=== PATIENT | female | born 1990 | race Caucasian/White ===

== ENCOUNTER 2024-11-30 13:59 | Day surgery (SDC) | payer SELFPAY ==
[2024-11-30 10:06] VITALS: BP 134/76
[2024-11-30 11:40] VITALS: BMI 34.8
[2024-11-30] MEDS: MORPHINE SULFATE 4 MG IV (11:42)
[2024-11-30] MEDS: TORADOL 30 MG IV (12:39)
--- NOTE | 2024-11-30 12:45 | ED.GENMED ---
History of Present Illness
General
Chief Complaint: Musculo-Skeletal Complaint
Source: patient
Exam Limitations: none
Time Seen by Provider: 11/30/24 11:18
History of Present Illness
History of Present Illness:
34-year-old female who was at a power lifting competition. She states she was just about to start squatting and was waiting for her support when suddenly her right forearm gave out. She is not sure exactly what happened. Significant other states
that he has a video and the arm seem to get out. Upon review of the video it does appear that maybe the bar started to slide down the shoulder and the forearm broke. Patient did not fall. No other injuries.
Past History
Past History
ED Past Medical History: None
Phy Exam
Physical Exam
Physical Exam:
CONSTITUTIONAL Patient alert and oriented to person, place and time. Well-appearing. Vital signs reviewed.
HEAD atraumatic, normocephalic.
EYES eyelids normal to inspection, Extraocular muscles intact, Conjunctiva normal, Sclera normal.
NECK normal range of motion, Trachea midline, no jugular venous distention.
RESPIRATORY CHEST No respiratory distress noted, Chest expansion equal
BACK normal inspection, no obvious deformities
UPPER EXTREMITY obvious deformity to the right forearm. Normal distal cap refill. Normal distal sensation function. Neurovascularly intact. No open wounds
LOWER EXTREMITY range of motion normal, Motor strength normal, no cyanosis, no edema.
NEURO Speech normal, No focal motor deficits, Zaki coma scale 15, Memory normal, Cranial Nerves intact to screening exam.
SKIN skin warm, dry, and normal in color.
Course
Orders/Labs/Results
Orders:
Orders
11/30/24 11:34
Morphine Sulfate 4 mg IV NOW STA
CR Forearm - Right 2 View Urgent
Reason For Exam: injury while powerlifting, deformity
11/30/24 12:36
Ketorolac [Toradol] 30 mg IV NOW STA
11/30/24 12:42
Complete Blood Count/With Diff Urgent
Comprehensive Metabolic Panel Urgent
HCG, Serum Qualitative Screen Urgent
Test Result ONCE
Vital Signs
Initial and Last Documented VS:
Initial Vital Signs
Temp Pulse Resp BP Pulse Ox
97.8 F 94 16 134/76 95
11/30/24 10:06 11/30/24 10:06 11/30/24 10:06 11/30/24 10:06 11/30/24 10:06
Last Documented Vital Signs
Temp Pulse Resp BP Pulse Ox
97.8 F 94 16 134/76 99
11/30/24 10:06 11/30/24 10:06 11/30/24 10:06 11/30/24 10:06 11/30/24 12:00
MDM/Problems Addressed
MDM/Problems Addressed:
Displaced radius fracture. Displaced ulnar fracture
*Radiology
Radiology exam reviewed: preliminary read by ED provider (Displaced radius and ulnar fracture)
*Pulse Oximetry
Patient hypoxic: no
*Repairer Sash And Door Interpretation
Rate: normal
Interpretation: normal
Rhythm: sinus
*Critical Care Note
Total Time (30-74mins, 75-104mins- exclusive of procedures): Not Applicable
Data Reviewed
Source: patient and significant other
Patient Management
Discussion with other providers: Pack Master (Case discussed with orthopedics)
Escalation/DeEscalation of care consider admission/obs:
Case discussed with Dr. Christina. Displaced radius and ulnar fracture. Will be difficult emergency department reduction. Dr. Christina to take to the OR
ED Attending Note
-
Portions of this chart may have been created with voice recognition software.� Occasional wrong word or��sound alike� substitutions may have occurred due to the inherent limitations of voice recognition software.
Discharge Plan
Departure
Patient Disposition: Admit
Date of Disposition: 11/30/24
Time of Disposition: 12:45
Admit to: OR
Presentation/result/management discussed w/ accepting MD/DO: Carri
Discharge Problem:
Displaced fracture of radius, Displaced fracture of right ulna
Referrals:
UNKNOWN - PT DOES,NOT KNOW [Family Provider] -
Interventions
Interventions:
*Risk Screen - Suicide Last Done: 11/30/24 10:06
*General Assessment Last Done: 11/30/24 11:41
*Neglect/Abuse Screening Last Done: 11/30/24 10:06
*ED- Fall Risk Assessment Last Done: 11/30/24 11:41
*ED COVID-19 Vaccine History Last Done: 11/30/24 11:41
ED-Musculoskeletal Assessment Last Done: 11/30/24 11:41
Discharge Date and Time
Print Language: GREENLANDIC
[2024-11-30 12:49] LABS: % Basophils 0.4 % (0-2); % Eosinophils 0.1 % (0-6); % Immature Granulocytes 0.4 % (0-0.5); % Lymphocytes 8.6 % (20.5-51.1); % Monocytes 4.6 % (1.7-9.3); % Neutrophils 85.9 % (42.2-75.2); Absolute Lymphocytes 0.9 10^3/uL (1.2-3.4); Absolute Monocytes 0.5 10^3/uL (0.1-0.6); Absolute Neutrophils 8.9 10^3/uL (1.4-6.5); Hematocrit 39.8 % (37.0-47.0); Hemoglobin 14.2 g/dL (12.0-16.0); Mean Corp Hgb Conc. 35.7 g/dL (33.0-37.0); Mean Corpuscular Hgb 30.6 pg (27.0-31.0); Mean Corpuscular Volume 85.8 fL (81.0-99.0); Mean Platelet Volume 10.3 fL (7.4-10.4); Nucleated Red Blood Cells % 0 %; Platelet Count 309 10^3/uL (130-400); Red Blood Cell Count 4.64 10^6/uL (4.20-5.40); Red Cell Dist. Width 12.3 % (11.5-14.5); White Blood Cell Count 10.4 10^3/uL (4.8-10.8)
[2024-11-30 13:01] LABS: HCG, Serum Qualitative Screen Negative
[2024-11-30 13:04] LABS: ALT (SGPT) 25 U/L (0-35); AST (SGOT) 28 U/L (14-36); Albumin 4.4 g/dl (3.5-5.0); Alkaline Phosphatase 63 U/L (38-126); Blood Urea Nitrogen 24 mg/dl (7-17); Calcium 9.6 mg/dl (8.4-10.2); Carbon Dioxide 24 mmol/L (22-30); Chloride 106 mmol/L (98-107); Estimated Creatinine Clearance 65 ml/min; Glucose 97 mg/dl (70-99); Potassium 4.8 mmol/L (3.5-5.1); Sodium 139 mmol/L (135-145); Total Bilirubin 0.8 mg/dl (0.2-1.3); Total Protein 7.4 g/dl (6.3-8.2); eGFR 55.68
--- NOTE | 2024-11-30 15:38 | CON.ORTHO ---
Consultation
-
Date/Time Consultation Requested: 11/30/24 @1pm
Date/Time Consultation Performed: 11/30/24 @1:30pm
Requesting Provider: ER Provider
Performing Provider: Sonya Daniels PA-C/Jaziel Christina MD
Reason for Consultation: right radius and ulna fractures
Consultation - Orthopedics
History
HPI: 34yo female presented to [facility] for right forearm pain. She was evaluated in the OR preop area in tandem with Dr. Christina. Earlier today, she was power lifting and was just about to squat when she heard a pop and felt her right arm give
out. She is not exactly sure what happened. She denies any other injuries and she did not fall. She has immediate pain and she noticed an obvious deformity of her right forearm. An ambulance was called and recommended she go to the hospital. She
drove herself to the ER. She reports pain to the right forearm. She has mild tingling of her thumb and index finger.
PAST MEDICAL HISTORY: denies
PAST SURGICAL HISTORY: reports oral surgery in her teens
SOCIAL HISTORY: denies tobacco, alcohol
FAMILY HISTORY: Non contributory
REVIEW OF SYSTEMS: 12 point review of systems obtained and negative except those mentioned in the HPI
Allergies / Home Medications
Allergy/AdvReac Type Severity Reaction Status Date / Time
No Known Allergies Allergy Unverified 11/30/24 10:08
�Medication �Instructions �Recorded
[id number] 250 1 tab PO DAILYPRN PRN mild pain 11/30/24
mg-250 mg-65 mg tablet (Excedrin
Migraine)
Vital Signs / Lab Results
Temp Pulse Resp BP Pulse Ox
97.8 F 94 16 134/76 99
11/30/24 10:06 11/30/24 10:06 11/30/24 10:06 11/30/24 10:06 11/30/24 12:00
11/30/24 12:43
11/30/24 12:43
RADIOGRAPHIC FINDINGS:
Xrays right forearm show displaced radius and ulna fractures
PHYSICAL EXAM:
General: AAOx3, no acute distress
HEENT: NCAT, sclera anicteric, normal hearing
Heart: No JVD
Lungs: Normal work of breathing on room air
MSK: Focused exam of right forearm reveal obvious deformity. skin intact. no discolorations. mild edema about the arm. ROM deferres. mild decreased sensation in the distribution of the median nerve. cap refill <2secs
Assessment / Plan
ASSESSMENT/PLAN:
34yo female with right displaced radius and ulna fractures
--These fractures will require operative fixation. Discussed the risks, benefits, and potential complications. She agrees to proceed with ORIF right radius and ulna under the direction of Dr. Christina today. Consent obtained. Expected postoperative
course was reviewed with the patient. All of her questions were answered.
--NPO
--Ancef for OR
--Will likely be able to discharge home following procedure
[2024-11-30 15:43] VITALS: BP 130/81; BP 134/76
[2024-11-30 15:45] VITALS: BP 132/83
[2024-11-30] MEDS: DILAUDID 0.25 MG IV (15:59)
[2024-11-30 16:00] VITALS: BP 142/92
[2024-11-30 16:15] VITALS: BP 148/88
[2024-11-30 16:30] VITALS: BP 152/90
== END 2024-11-30 16:46 | disposition home or self-care (01) ==
LOC: PACU 13:59
PROVIDERS: ATTENDING PHYSICIAN Orthopaedic Surgery; EMERGENCY PHYSICIAN Emergency Medicine
DX: S52.201A Unspecified fracture of shaft of right ulna, initial encounter for closed fracture (principal); S52.301A Unspecified fracture of shaft of right radius, initial encounter for closed fracture; X58.XXXA Exposure to other specified factors, initial encounter
CPT/HCPCS: 25575; 73090; 80053; 84703; 85025; 96374; 96375; 99284; C1713